=== PATIENT | female | born 1990 | race Caucasian/White ===

== ENCOUNTER 2017-12-07 13:43 | Emergency (ER) | payer BC ==
[2017-12-07] MEDS ORDERED: NORMAL SALINE 1000 ML 1,000 ML IV ONE (15:44)
[2017-12-07] MEDS ORDERED: METHYLPREDNISOLONE INJ 1000 MG VIAL IV ONE (15:45)
[2017-12-07] MEDS ORDERED: KETOROLAC TROMETHAMINE INJ/PF 30 MG/1 ML SDV IV ONE (15:45)
[2017-12-07] MEDS ORDERED: DIPHENHYDRAMINE HCL 50 MG/ML VIAL IV ONE ×2 (15:45→18:57)
--- NOTE | 2017-12-07 15:47 | ER Document Report ---
ED Medical Screen (RME) - General Chief Complaint: Headache <24 hrs old Stated Complaint: HEADACHE/NECK PAIN Time Seen by Provider: 12/07/17 15:43 Mode of Arrival: Ambulatory Information source: Patient Notes: Patient is a 27-year-old female who presents with chief complaint of headache. Patient reports that she has lupus, states this is a typical headache for her with her lupus flareup. Patient reports the headache started this morning at about 3 AM and has associated nausea and vomiting, patient denies any fever. Exam: Patient alert, oriented with moderate distress noted. Lung sounds clear to auscultation bilaterally. I have greeted and performed a rapid initial assessment of this patient. A comprehensive ED assessment and evaluation of the patient, analysis of test results and completion of the medical decision making process will be conducted by additional ED providers. Dictation of this chart was performed using voice recognition software; therefore, there may be some unintended grammatical errors. TRAVEL OUTSIDE OF THE [place] IN LAST 30 DAYS: No - Related Data Allergies/Adverse Reactions: Tuberculin,Ppd,Multi-Puncture [From Tuberculin PPD Liz Test] Allergy (Severe, Verified 02/03/14 15:33) swelling, hives Past Medical History - Social History Chew tobacco use (# tins/day): No Frequency of alcohol use: Occasional Drug Abuse: None Renal/ Medical History: Reports: Hx Kidney Stones - Four ureteral stents in past + "ruptured left kidney" and nephrostomy tube. Denies: Hx Peritoneal Dialysis Musculoskeltal Medical History: Reports Hx Arthritis - Rheumatoid arthritis, Reports Hx Fibromyalgia Psychiatric Medical History: Reports: Hx Anxiety Past Surgical History: Reports: Hx Cholecystectomy, Hx Kidney (Renal Surgery) - stents/neprostomy tube, Hx Oral Surgery - Immunizations Hx Diphtheria, Pertussis, Tetanus Vaccination: Yes Physical Exam - Vital signs Vitals: Temp Pulse Resp BP Pulse Ox 98.1 F 48 L 20 131/71 H 100 12/07/17 14:12/07/17 14:12/07/17 14:12/07/17 14:12/07/17 14:27 Course - Vital Signs Vital signs: Temp Pulse Resp BP Pulse Ox 98.1 F 48 L 20 131/71 H 100 12/07/17 14:27 12/07/17 14:12/07/17 14:12/07/17 14:27 12/07/17 14:27 Doctor's Discharge - Discharge Referrals: SIDNEY CRUZ MD [Primary Care Provider] - Follow up as needed
[2017-12-07] MEDS ORDERED: HYDROMORPHONE HCL INJ/PF 2 MG/ML AMPULE IV ONE (18:57)
[2017-12-07] MEDS ORDERED: PROCHLORPERAZINE EDISYLATE INJ 10 MG/2 ML VIAL IV ONE (18:57)
--- NOTE | 2017-12-07 18:59 | ER Document Report ---
ED General - General Chief Complaint: Headache <24 hrs old Stated Complaint: HEADACHE/NECK PAIN Time Seen by Provider: 12/07/17 15:43 Mode of Arrival: Ambulatory Information source: Patient Notes: This is a 27-year-old female with a history of lupus, Sjogren's syndrome, migraines who presents to the emergency room with headache and neck pain. Patient denies fever. She denies any recent illnesses. She states that this is similar to her previous headaches associated with lupus. Patient is on immunosuppressants (methotrexate, Humira, Plaquenil). TRAVEL OUTSIDE OF THE [place] IN LAST 30 DAYS: No - HPI Onset: Just prior to arrival Onset/Duration: Gradual Quality of pain: Dull Severity: Moderate Pain Level: 2 Associated symptoms: denies: Chills, Fever Exacerbated by: Denies Relieved by: Denies Similar symptoms previously: Yes Recently seen / treated by doctor: No - Related Data Allergies/Adverse Reactions: Tuberculin,Ppd,Multi-Puncture [From Tuberculin PPD Liz Test] Allergy (Severe, Verified 02/03/14 15:33) swelling, hives Past Medical History - General Information source: Patient - Social History Smoking Status: Never Smoker Cigarette use (# per day): No Chew tobacco use (# tins/day): No Frequency of alcohol use: Occasional Drug Abuse: None Lives with: Family Family History: Reviewed & Not Pertinent Patient has suicidal ideation: No Patient has homicidal ideation: No Pulmonary Medical History: Reports: None Neurological Medical History: Reports: Hx Migraine Renal/ Medical History: Reports: Hx Kidney Stones - Four ureteral stents in past + "ruptured left kidney" and nephrostomy tube. Denies: Hx Peritoneal Dialysis Musculoskeletal Medical History: Reports Hx Arthritis - Rheumatoid arthritis, Reports Hx Fibromyalgia, Reports Other - Lupus Psychiatric Medical History: Reports: Hx Anxiety Past Surgical History: Reports: Hx Cholecystectomy, Hx Kidney (Renal Surgery) - stents/neprostomy tube, Hx Oral Surgery - Immunizations Hx Diphtheria, Pertussis, Tetanus Vaccination: Yes Review of Systems - Review of Systems Constitutional: denies: Chills, Fever EENT: No symptoms reported Cardiovascular: No symptoms reported Respiratory: No symptoms reported Gastrointestinal: No symptoms reported Genitourinary: No symptoms reported Female Genitourinary: No symptoms reported Musculoskeletal: No symptoms reported Skin: No symptoms reported Hematologic/Lymphatic: No symptoms reported Neurological/Psychological: See HPI Physical Exam - Vital signs Vitals: Temp Pulse Resp BP Pulse Ox 98.1 F 48 L 20 131/71 H 100 12/07/17 14:27 12/07/17 14:27 12/07/17 14:27 12/07/17 14:27 12/07/17 14:27 Notes: Physical exam: GENERAL: A 27-year-old female, alert and oriented 3, complaining of headache. She does appear comfortable. HEAD: Atraumatic, normocephalic. EYES: Pupils equal round and reactive to light, extraocular movements intact, sclera anicteric, conjunctiva are normal. ENT: TMs normal, nares patent, oropharynx clear without exudates. Moist mucous membranes. NECK: Normal range of motion, supple (i.e. no rigidity). LUNGS: Breath sounds clear to auscultation bilaterally and equal. No wheezes rales or rhonchi. HEART: Regular rate and rhythm without murmurs, rubs or gallops. ABDOMEN: Soft, normoactive bowel sounds. No tenderness to palpation. No guarding, no rebound. No masses appreciated. EXTREMITIES: Normal range of motion, no pitting or edema. No clubbing or cyanosis. NEUROLOGICAL: Cranial nerves II through XII grossly intact. Normal speech, moving all extremities. Negative Kernig's, negative Romberg. PSYCH: Normal mood, normal affect. SKIN: Warm, Dry, normal turgor, no rashes or lesions noted. Course - Re-evaluation Re-evalutation: 12/07/17 23:29 Note: Patient was treated with IV Solu-Medrol, Toradol, Benadryl. She received a second round of IV Dilaudid, Compazine and Benadryl. She received IV fluids and she was observed for several hours. On repeat exam, she is much improved. She is sitting up on her phone states that her headache is gone completely. - Vital Signs Vital signs: Temp Pulse Resp BP Pulse Ox 98.7 F 62 16 126/67 H 96 12/07/17 21:58 12/07/17 21:58 12/07/17 21:58 12/07/17 21:58 12/07/17 21:58 Discharge - Discharge Clinical Impression: Migraine headache Condition: Stable Disposition: HOME, SELF-CARE Additional Instructions: Recommendations: Rest, drink plenty of fluids, advance diet as tolerated. Take the pain medicine as prescribed. Take the nausea medicine as needed. The pain medicine you're taking prescribed as a narcotic. There are several important things you should know about this medicine: 1. This medicine contains Tylenol: It is important that you do not take Tylenol (or acetaminophen) while on this medicine. Tylenol is metabolized by the liver and taking too much Tylenol (acetaminophen) can lay to liver damage and even liver failure. 2. Taking narcotics for too long can lead to physical and mental dependence. Take this medicine only if really needed and in the lowest quantity to achieve pain relief. 3. Do not drink alcohol while on this medicine. Alcohol interacts with narcotics and the combination can be dangerous. 4. Do not drive or operate machinery while on this medicine. 5. Narcotics do cause constipation, so drink plenty of fluids and daily stool softeners. Return to the emergency room for worsening headache, fever, chills or any concerns or getting worse. Prescriptions: Oxycodone HCl/Acetaminophen [Percocet 5-325 mg Tablet] 1 - 2 tab PO ASDIR PRN # 25 tablet PRN Reason: Promethazine HCl [Phenergan 25 mg Tablet] 25 mg PO Q6H PRN #15 tablet PRN Reason: Referrals: SIDNEY CRUZ MD [Primary Care Provider] - Follow up as needed
[2017-12-07 21:59] VITALS: BP 126/67
== END 2017-12-07 21:59 | disposition home or self-care (01) ==
LOC: ER 13:43
DX: G43.909 Migraine, unspecified, not intractable, without status migrainosus (principal); M54.2 Cervicalgia; M35.00 Sjogren syndrome, unspecified; Z79.899 Other long term (current) drug therapy; Z88.7 Allergy status to serum and vaccine
CPT/HCPCS: 96376; 99284; 96361; 96374; 96375; J1200; J2930; J1885; J1170; J0780